=== PATIENT | male | born 1990 | race Caucasian/White ===

== ENCOUNTER 2022-08-06 16:01 | Inpatient (IN) | payer MEDICARE, MEDICAID, SELFPAY ==
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
[2022-08-06 16:36] VITALS: BP 150/100; PULSE 84; RESP 14; TEMP 36.8; O2SAT 98; BMI 32.3
--- NOTE | 2022-08-06 16:46 | XRR_ITS ---
PROCEDURE INFORMATION: Exam: XR Chest Exam date and time: 08/06/2022 5:06 PM Age: 31 years old Clinical indication: Pain; Shortness of breath and other: Cough; Chest pressure; Patient HX: Patients states he has lung cancer; Additional info: SOB TECHNIQUE: Imaging protocol: Radiologic exam of the chest. Views: 1 view. COMPARISON: No relevant prior studies available. FINDINGS: Lungs: Unremarkable. No consolidation. Pleural spaces: Unremarkable. No pleural effusion. No pneumothorax. Heart/Mediastinum: Unremarkable. No cardiomegaly. Bones/joints: No acute abnormality. XR/XR chest 1V portable [id number] IMPRESSION: No acute findings.
--- NOTE | 2022-08-06 16:59 | ECG_ITS ---
[facility] Test Date: 2022-08-06 Pat Name: Luis John Department: Room: Gender: Male Database Administrator: : 1990 Requested By: Remberto Cisneros Order Number: [id number] Villarreal MD: Mac Black M.D. Measurements Intervals [place] Rate: 92 P: 48 IN: 174 QRS: 59 QRSD: 100 T: 29 QT: 332 QTc: 411 Interpretive Statements SINUS RHYTHM WITH OCCASIONAL VENTRICULAR PREMATURE COMPLEXES No previous ECG available for comparison Electronically Signed On 08-07-2022 18:14:42 REPRODUCER by Mac Black M.D. [email or web address]
[2022-08-06 17:43] LABS: Basophils # 0.1 10^3/uL (0.0-0.1); Basophils % 0.4 %; Eosinophils % 0.2 %; Hematocrit 51.8 % (42.0-52.0); Lymphocytes # 2.1 10^3/uL (0.8-4.8); Lymphocytes % 16.9 %; Mean Corpuscular HGB Conc 34.7 g/dL (30.0-36.0); Mean Corpuscular Hemoglobin 30.3 pg (28.0-34.0); Mean Corpuscular Volume 87.1 fl (80-94); Mean Platelet Volume 11.7 fL (7.4-10.4); Monocytes # 0.7 10^3/uL (0.2-0.9); Monocytes % 5.8 %; Neutrophils # 9.27 10^3/uL (1.8-7.7); Neutrophils % 76.4 %; Nucleated Red Blood Cells % 0 %; Platelet Count 330 10^3/cmm (130-400); Red Blood Count 5.95 10^6/uL (4.1-5.3); Red Cell Distribution Width 12.9 % (12.1-15.1); White Blood Count 12.1 10^3/uL (4.0-10.0)
[2022-08-06 18:19] LABS: Alanine Aminotransferase 25 U/L (0-41); Albumin Level 5.1 g/dL (3.5-5.2); Alkaline Phosphatase 70 U/L (40-130); Anion Gap 21.8 (5-19); Aspartate Amino Transferase 18 U/L (0-40); Blood Urea Nitrogen 12 mg/dL (6-20); Calcium 10.5 mg/dL (8.5-10.5); Carbon Dioxide 21 mmol/L (22-29); Chloride 101 mmol/L (98-107); Globulin 3.9 g/dL (1.3-4.6); Glomerular Filtration Rate 98.4 mL/min (90-130); Glucose 103 mg/dL (65-115); Osmolality Calculated 290 mOsm/kg (285-295); Potassium 3.8 mmol/L (3.5-5.1); Sodium 140 mmol/L (136-145); Thyroid Stimulating Hormone 1.27 uIU/mL (0.27-4.20); Total Bilirubin 0.9 mg/dL (0.15-1.2)
[2022-08-06 18:20] LABS: Acetaminophen < 5.0 ug/mL (10-30); Alcohol Level < 10 mg/dL (0-10); Salicylate < 0.3 mg/dL (3-10)
[2022-08-06 19:00] LABS: Amphetamines Screen Urine Negative (Negative); Barbiturates Screen Urine Negative (Negative); Benzodiazepines Screen Urine Negative (Negative); Cocaine Screen Urine Negative (Negative); Opiate Screen Urine Negative (Negative); PCP Screen Urine Negative (Negative); THC Screen Urine Positive (Negative)
[2022-08-06 19:08] LABS: SARS Covid-2 Antigen Negative (Negative)
[2022-08-06 19:10] LABS: Protein Urine 1+ (Negative); Specific Gravity, Urine 1.015 (1.005-1.030); Urine Appearance Hazy (CLEAR); Urine Color Yellow (Yellow); pH Urine 7 (5-7)
[2022-08-06 19:11] LABS: Add Urine Microscopic? YES; Bilirubin Urine 2+ (Negative); Blood Urine Neg (Negative); Glucose Urine UA Norm (Normal); Ketones Urine 2+ (Negative); Leukocyte Esterase Urine 1+ (Negative); Nitrate Urine Negative (Negative); Urobilinogen Urine 1 mg/dL (Negative)
[2022-08-06 19:14] LABS: Add Urine Culture? Yes; Bacteria Urine 1+ /hpf; Mucus Urine 3+ /hpf; Squamous Epithelial Cell Urine 0-4 /hpf (0-5); WBC Urine 25-40 /hpf (0-5)
[2022-08-06] MEDS: nicotine 14 mg Patch 1 PATCH TRANSDERMA (19:15)
[2022-08-06 19:34] VITALS: BP 132/97; TEMP 36.7
[2022-08-06] MEDS: ciprofloxacin 500 mg Tablet PO (20:15)
[2022-08-06 22:00] VITALS: BP 140/104; PULSE 91; RESP 18; TEMP 36.6; O2SAT 98
[2022-08-06] MEDS: acetaminophen 325 mg Tablet 650 MG PO (22:12)
--- NOTE | 2022-08-06 22:15 | PC.NURSE ---
pt came to nurses station and asked for something to help with acid. tylenol was given as ordered.
[2022-08-06] MEDS: diphenhydrAMINE 50 mg Capsule PO (23:01)
[2022-08-06] MEDS: haloperidol 5 mg Tablet PO (23:01)
--- NOTE | 2022-08-06 23:09 | PC.NURSE ---
pt presented to unit paranoid, pacing unit, believes people are out to get him, constantly watching exit doors, has been redirected multiple times by staff to walk toward dayroom if needing to walk as other patients are sleeping. pt reports there's someone in the hospital after me assured patient he is safe. Discussed this was a locked unit. He has continued to pace, becoming more anxious, he has a look of fear in his eyes. Provider notified, ordered for Benadryl 50mg PO, Ativan 2mg PO, Haldol 5mg PO. pt refused only Ativan as he stated I had an addiction in the past and don't want this one, can I refuse it? the RN stated yes, it's your right to refuse. Pt med compliant with Benadryl and Haldol. Will continue to monitor.
--- NOTE | 2022-08-07 00:59 | PC.ADMIT ---
[address] Admission Note: The patient,Luis John,31 y/o, was given written information regarding hospital policies, unit procedures and contact persons. Patient's smoking status: . Vital Signs - 8 hr 08/06/22 19:34 08/06/22 22:00 08/06/22 21:22 Temperature 98.0 F 97.8 F Pulse Rate 91 Respiratory Rate 18 Blood Pressure 132/97 140/104 Pulse Oximetry 98 Oxygen Delivery Method Room Air Room Air Room Air
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
[2022-08-07 06:00] VITALS: RESP 18
--- NOTE | 2022-08-07 06:03 | PC.NURSE ---
pt has been sleeping most of the night, on occasions during safety rounds it was observed patient to be restless, he continued to sleep without any issues.
--- NOTE | 2022-08-07 06:12 | PC.NURSE ---
pt has been awake since about 0330, she has been calm and cooperative, and showered. Staff has encouraged pt to try to get additional rest.
--- NOTE | 2022-08-07 06:36 | PC.NURSE ---
During admission assessment pt reported I take Depakote 500mg twice a day and a little blue pill for my PTSD. My aunt Vivienne can go to my apartment and look at alll my pills pt encouraged to discuss medications with provider.
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
[2022-08-07] MEDS: ciprofloxacin 500 mg Tablet PO ×2 (13:06→20:47)
[2022-08-07 14:00] VITALS: BP 127/84; PULSE 99; RESP 16; TEMP 36.8; O2SAT 98
[2022-08-07] MEDS: nicotine 21 mg Patch 1 PATCH TRANSDERMA (14:34)
[2022-08-07 21:49] VITALS: BP 114/70; PULSE 77; RESP 16; O2SAT 97
--- NOTE | 2022-08-08 04:56 | PC.NURSE ---
pt woke up once for a drink but otherwise, slept all night, no issues reported or noted
[2022-08-08 06:00] VITALS: RESP 18
[2022-08-08 06:46] VITALS: BP 111/71; PULSE 68; RESP 16; TEMP 36.6; O2SAT 97
[2022-08-08] MEDS: ciprofloxacin 500 mg Tablet PO ×2 (08:19→20:58)
--- NOTE | 2022-08-08 08:45 | PC.NURSE ---
shift assessment denies SI/HI/AVH currently, replies with kwasi answer no to questions asked of him, med compliant at this time.
[2022-08-08 14:00] VITALS: BP 123/83; PULSE 86; RESP 16; TEMP 36.6; O2SAT 97
[2022-08-08] MEDS: nicotine 21 mg Patch 1 PATCH TRANSDERMA (15:39)
--- NOTE | 2022-08-08 16:13 | W.PM.NPUPNS ---
Subjective NPU Subjective: Patient presents today reporting that things have been rough recently. He was in a psychiatric hospital in [place] and discharged with a 30-day supply of medications which he suggest may have run out 6 to 7 days ago. He reports that his aunt brought him down to the area as she moved out here as his grandmother is in failing health in this area. Reportedly she has a list of his medications as he can only remember that he was on Depakote and could not remember the dose. We discussed the risks, benefits and alternatives of restarting the Depakote at 500 mg p.o. nightly and he understood and agreed to proceed as is documented in this note. We agreed that once we got a list of his other medications that we would get those restarted. He expressed extreme anxiety and anxiousness about being in the hospital, about not having his medication etc. Mental Status Exam MSE Comments: This is a short obese white male in hospital scrubs with limited grooming and eye contact.? No abnormal movements except for psychomotor agitation.? More cooperative with exam in moderate to extreme distress.? Speech was slightly increased rate and normal volume.? Mood described as anxious, affect affect congruent with less irritable.? Thought process linear.? Thought content: Patient did not answer questions surrounding lethality but did not display aggression toward self or others, there were no delusions reported or but clear paranoia noted, he he did not report any auditory or visual hallucinations.? Attention, concentration and memory appear limited but were not formally tested.? He is alert and oriented to person or place.? Insight, judgment and impulse control impaired. Vitals/I&O/Wt Last Vital Signs Temp 98 F 08/08/22 14:00 Pulse 86 08/08/22 14:00 Resp 16 08/08/22 14:00 BP 123/83 08/08/22 14:00 Pulse Ox 97 08/08/22 14:00 O2 Del Method 08/08/22 14:00 Weight last 48 hrs Weight 90.718 kg Data NPU 08/06/22 17:27 08/06/22 17:27 Micro: Microbiology 08/06/22 18:25 Urine Culture - Final Urine,Clean Catch Microbiology 08/06/22 18:25 Urine,Clean Catch Urine Culture - Final A&P Assessment and plan (1) Acute UTI: (2) Acute psychosis: (3) Suicidal ideation: Plan This is a 31-year-old white male with a long history of mental health issues and many unknowns secondary to him not having any history of our systems, but he is a more willing historian today. 1.? Continue current medication. Start Depakote DR 500 mg p.o. nightly. And find additional information on other medications 2.? Continue every 15 minute checks for safety. 3.? Encourage individual, group and milieu therapies. 4.? Encourage sober living treatment after discharge at the highest level of care to which he is willing to commit.. Involuntary Hold Information 96 Hour Hold: 96 Hour Involuntary Admission: No Attestations NPU Medical Necessity Statement*: Inpatient hospitalization is medically necessary and the clinically appropriate intervention at this time. We will monitor medication to make changes as indicated.? Likely length of stay 3 to 5 days. Coding Level of Care Code Acute Code for Chg Fwd Diagnoses Acute UTI N39.0 Acute psychosis F23 Suicidal ideation R45.851
[2022-08-08] MEDS: hyDROXYzine 25 mg Capsule 50 MG PO (18:16)
--- NOTE | 2022-08-08 18:16 | PC.NURSE ---
PRN VISTARIL 50 MG GIVEN PO PER PT C/O STATED ANXIETY
[2022-08-08] MEDS: divalproex DR 500 mg Tablet PO (20:58)
[2022-08-08 22:00] VITALS: BP 136/83; PULSE 105; RESP 17; TEMP 37; O2SAT 98
[2022-08-09 06:00] VITALS: RESP 16
[2022-08-09] MEDS: ciprofloxacin 500 mg Tablet PO ×2 (08:37→23:12)
--- NOTE | 2022-08-09 13:25 | W.PM.NPUPNS ---
Subjective NPU Subjective: Patient presented today reporting that he is still feeling crappy from not having his medications. His family brought in his medication list. And after reviewing it he and I discussed the risks, benefits and alternatives of restarting his medications. Somewhat slightly lower doses initially but he understood and agreed to proceed as is documented in this note. We will be restarting his Zyprexa, Cogentin, propranolol and switching his Depakote to ER at a slightly lower dose initially. Mental Status Exam MSE Comments: This is a short obese white male in hospital scrubs with limited grooming and eye contact.? No abnormal movements except for psychomotor agitation.? More cooperative with exam in moderate to extreme distress.? Speech was slightly increased rate and normal volume.? Mood described as anxious, affect affect congruent with less irritable.? Thought process linear.? Thought content: Patient did not answer questions surrounding lethality but did not display aggression toward self or others, there were no delusions reported or but clear paranoia noted, he he did not report any auditory or visual hallucinations.? Attention, concentration and memory appear limited but were not formally tested.? He is alert and oriented to person or place.? Insight, judgment and impulse control impaired. Vitals/I&O/Wt Last Vital Signs Temp 98.6 F 08/08/22 22:00 Pulse 105 H 08/08/22 22:00 Resp 16 08/09/22 06:00 BP 136/83 08/08/22 22:00 Pulse Ox 98 08/08/22 22:00 O2 Del Method 08/08/22 22:00 Data NPU 08/06/22 17:27 08/06/22 17:27 Micro: Microbiology 08/06/22 18:25 Urine Culture - Final Urine,Clean Catch Microbiology 08/06/22 18:25 Urine,Clean Catch Urine Culture - Final A&P Assessment and plan (1) Acute UTI: (2) Acute psychosis: (3) Suicidal ideation: Plan This is a 31-year-old white male with a long history of mental health issues and many unknowns secondary to him not having any history of our systems, but he is a more willing historian today. 1.? Continue current medication. Started Depakote DR 500 mg p.o. nightly. Depakote to ER 1000 mg p.o. nightly, Zyprexa 15 mg p.o. nightly, propranolol 20 mg p.o. twice daily, and Cogentin 1 mg p.o. twice daily. He had been on Depakote ER 1500, and Zyprexa 30 mg p.o. q. nightly. 2.? Continue every 15 minute checks for safety. 3.? Encourage individual, group and milieu therapies. 4.? Encourage sober living treatment after discharge at the highest level of care to which he is willing to commit.. Involuntary Hold Information 96 Hour Hold: 96 Hour Involuntary Admission: No Attestations NPU Medical Necessity Statement*: Inpatient hospitalization is medically necessary and the clinically appropriate intervention at this time. We will monitor medication to make changes as indicated.? Likely length of stay 3 to 5 days. Coding Level of Care Code Acute Code for Chg Fwd Diagnoses Acute UTI N39.0 Acute psychosis F23 Suicidal ideation R45.851
[2022-08-09 14:00] VITALS: BP 98/68; PULSE 76; RESP 16; TEMP 36.8; O2SAT 96
[2022-08-09] MEDS: propranolol 20 mg Tablet PO (17:38)
[2022-08-09] MEDS: benztropine 1 mg Tablet PO (17:38)
[2022-08-09 22:00] VITALS: BP 115/63; PULSE 57; RESP 15; TEMP 36.4; O2SAT 98
[2022-08-09] MEDS: divalproex ER 500 mg Tablet (24H) 1000 MG PO (23:12)
[2022-08-09] MEDS: OLANZapine 10 mg TABLET 15 MG PO (23:12)
[2022-08-10 06:00] VITALS: BP 106/75; PULSE 88; RESP 18; O2SAT 97
[2022-08-10] MEDS: nicotine 21 mg Patch 1 PATCH TRANSDERMA (08:50)
[2022-08-10] MEDS: benztropine 1 mg Tablet PO ×2 (08:51→17:44)
[2022-08-10] MEDS: ciprofloxacin 500 mg Tablet PO ×2 (08:51→21:07)
[2022-08-10] MEDS: propranolol 20 mg Tablet PO ×2 (08:51→17:44)
--- NOTE | 2022-08-10 12:58 | P.NPUPN_ITS ---
Subjective NPU Subjective: Patient presented today reporting that he is feeling better. He was lying in bed but no reports of irritability or anxiety now that the medications have been restarted. We discussed the risk benefits and alternatives of considering increasing the medications tomorrow to previous dose levels and he understood and agreed to proceed as is documented in this note. He denied any new or pressing issues and continued to be optimistic about the possibility of discharge at the beginning of the week. Mental Status Exam MSE Comments: This is a short obese white male in hospital scrubs with limited grooming and eye contact.? No abnormal movements except for psychomotor agitation.? More cooperative with exam in moderate to extreme distress.? Speech was slightly increased rate and normal volume.? Mood described as a little better, affect congruent.? Thought process linear.? Thought content: Patient did not answer questions surrounding lethality but did not display aggression toward self or others, there were no delusions reported or but clear paranoia noted, he he did not report any auditory or visual hallucinations.? Attention, concentration and memory appear limited but were not formally tested.? He is alert and oriented to person or place.? Insight, judgment and impulse control impaired. Vitals/I&O/Wt Last Vital Signs Temp 97.6 F 08/09/22 22:00 Pulse 88 08/10/22 06:00 Resp 18 08/10/22 06:00 BP 106/75 08/10/22 06:00 Pulse Ox 97 08/10/22 06:00 O2 Del Method 08/10/22 06:00 Data NPU 08/06/22 17:27 08/06/22 17:27 A&P Assessment and plan (1) Acute UTI: (2) Acute psychosis: (3) Suicidal ideation: Plan This is a 31-year-old white male with a long history of mental health issues and many unknowns secondary to him not having any history of our systems, but he is a more willing historian today. 1.? Continue current medication. Started Depakote DR 500 mg p.o. nightly. Depakote to ER 1000 mg p.o. nightly, Zyprexa 15 mg p.o. nightly, propranolol 20 mg p.o. twice daily, and Cogentin 1 mg p.o. twice daily. He had been on Depakote ER 1500, and Zyprexa 30 mg p.o. q. nightly. We discussed the possibili ty of increasing the Depakote and Zyprexa tomorrow. 2.? Continue every 15 minute checks for safety. 3.? Encourage individual, group and milieu therapies. 4.? Encourage sober living treatment after discharge at the highest level of care to which he is willing to commit.. Involuntary Hold Information 96 Hour Hold: 96 Hour Involuntary Admission: No Attestations NPU Medical Necessity Statement*: Inpatient hospitalization is medically necessary and the clinically appropriate intervention at this time. We will monitor medication to make changes as indicated.? Likely length of stay 2-4 days. Coding Level of Care Code Acute Code for Chg Fwd Diagnoses Acute UTI N39.0 Acute psychosis F23 Suicidal ideation R45.851
[2022-08-10 14:00] VITALS: BP 112/67; PULSE 58; RESP 16; TEMP 36.6; O2SAT 98
[2022-08-10] MEDS: divalproex ER 500 mg Tablet (24H) 1000 MG PO (21:07)
[2022-08-10] MEDS: OLANZapine 10 mg TABLET 15 MG PO (21:07)
[2022-08-10 22:00] VITALS: BP 125/78; PULSE 59; RESP 16; TEMP 36.3; O2SAT 97
[2022-08-11 06:00] VITALS: RESP 16
[2022-08-11] MEDS: propranolol 20 mg Tablet PO ×2 (09:14→17:28)
[2022-08-11] MEDS: benztropine 1 mg Tablet PO ×2 (09:14→17:28)
[2022-08-11] MEDS: ciprofloxacin 500 mg Tablet PO ×2 (09:17→19:55)
--- NOTE | 2022-08-11 09:20 | PC.NURSE ---
Attempted to check pt's vital signs before giving pt his medications. He refused, but said he wanted to take his pills. Medications given.
[2022-08-11] MEDS: nicotine 21 mg Patch 1 PATCH TRANSDERMA (10:26)
--- NOTE | 2022-08-11 10:26 | PC.NURSE ---
Pt came to nurses station for nicotine patch. Asked pt if could check his pulse. Pt again declined to allow staff to do this. Staff reminded pt he received medication that could slow his heart rate. Pt verbalized his understanding and said he'd let staff know if he had any problems. Discussed possible lightheadedness, dizziness, etc. Pt irritably said he knew. Pt declined to allow staff to apply the nicotine patch to his arm; he did it himself.
--- NOTE | 2022-08-11 11:02 | W.PM.NPUPNS ---
Subjective NPU Subjective: Patient presented today reporting that things were going fine. He has been in bed a little bit but reports that is because he is not feeling great. We discussed returning the Depakote to his previous dose but only increasing the Zyprexa to 20 mg p.o. nightly including the risks, benefits and alternatives and he understood and agreed to proceed as is documented in this note. We discussed continuing on the plan that we discussed for discharge at the beginning of the week if he has regained his stability. Mental Status Exam MSE Comments: This is a short obese white male in hospital scrubs with limited grooming and eye contact.? No abnormal movements except for psychomotor agitation.? More cooperative with exam in moderate to extreme distress.? Speech was slightly increased rate and normal volume.? Mood described as a little better, affect congruent.? Thought process linear.? Thought content: Patient did not answer questions surrounding lethality but did not display aggression toward self or others, there were no delusions reported or but clear paranoia noted, he he did not report any auditory or visual hallucinations.? Attention, concentration and memory appear limited but were not formally tested.? He is alert and oriented to person or place.? Insight, judgment and impulse control impaired. Vitals/I&O/Wt Last Vital Signs Temp 97.4 F L 08/10/22 22:00 Pulse 59 L 08/10/22 22:00 Resp 16 08/11/22 06:00 BP 125/78 08/10/22 22:00 Pulse Ox 97 08/10/22 22:00 O2 Del Method 08/10/22 22:00 Data NPU 08/06/22 17:27 08/06/22 17:27 A&P Assessment and plan (1) Acute UTI: (2) Acute psychosis: (3) Suicidal ideation: Plan This is a 31-year-old white male with a long history of mental health issues and many unknowns secondary to him not having any history of our systems, but he is a more willing historian today. 1.? Continue current medication. Started Depakote DR 500 mg p.o. nightly. Depakote to ER 1000 mg p.o. nightly, Zyprexa 15 mg p.o. nightly, propranolol 20 mg p.o. twice daily, and Cogentin 1 mg p.o. twice daily. He had been on Depakote ER 1500, and Zyprexa 30 mg p.o. q. nightly. Increase Depakote back to 1500 mg p.o. nightly of the ER and 20 mg p.o. nightly of Zyprexa. 2.? Continue every 15 minute checks for safety. 3.? Encourage individual, group and milieu therapies. 4.? Encourage sober living treatment after discharge at the highest level of care to which he is willing to commit.. Involuntary Hold Information 96 Hour Hold: 96 Hour Involuntary Admission: No Attestations NPU Medical Necessity Statement*: Inpatient hospitalization is medically necessary and the clinically appropriate intervention at this time. We will monitor medication to make changes as indicated.? Likely length of stay 2-3 days. Coding Level of Care Code Acute Code for Chg Fwd Diagnoses Acute UTI N39.0 Acute psychosis F23 Suicidal ideation R45.851
[2022-08-11 14:00] VITALS: BP 113/71; PULSE 62; RESP 16; TEMP 36.6; O2SAT 91
--- NOTE | 2022-08-11 14:45 | PC.NURSE ---
Discussed pt's refusal to allow his pulse to be taken before Inderal being given with . Pt did allow his vitals to be taken at 1430 today. Pulse at that time was 62. Previously had been in the upper 50s. said to hold Inderal if pulse 50 or less.
[2022-08-11] MEDS: OLANZapine 10 mg TABLET 20 MG PO (19:55)
[2022-08-11] MEDS: divalproex ER 500 mg Tablet (24H) 1500 MG PO (19:55)
[2022-08-11 20:37] VITALS: BP 98/25; PULSE 78; RESP 18; TEMP 36.5; O2SAT 96; BMI 31.6
[2022-08-12 06:00] VITALS: BP 106/67; PULSE 59; RESP 16; O2SAT 95
--- NOTE | 2022-08-12 06:30 | P.NPUPN_ITS ---
Subjective NPU Subjective: Patient reporting that he is doing better with medications being titrated. We discussed the fact that Dr. Hernandez will return tomorrow and continue to evaluate the need for any additional changes. We discussed the continued likelihood for discharge early this week. He denied any side effects or new or pressing issues. Mental Status Exam MSE Comments: This is a short obese white male in hospital scrubs with limited grooming and eye contact.? No abnormal movements except for psychomotor agitati on.? More cooperative with exam in moderate to extreme distress.? Speech was slightly increased rate and normal volume.? Mood described as a little better, affect congruent.? Thought process linear.? Thought content: Patient did not answer questions surrounding lethality but did not display aggression toward self or others, there were no delusions reported or but clear paranoia noted, he he did not report any auditory or visual hallucinations.? Attention, concentration and memory appear limited but were not formally tested.? He is alert and oriented to person or place.? Insight, judgment and impulse control impaired. Vitals/I&O/Wt Last Vital Signs Temp 97.7 F 08/11/22 20:37 Pulse 78 08/11/22 20:37 Resp 18 08/11/22 20:37 BP 98/25 08/11/22 20:37 Pulse Ox 96 08/11/22 20:37 O2 Del Method 08/11/22 20:37 Weight last 48 hrs Weight 89.018 kg Data NPU 08/06/22 17:27 08/06/22 17:27 A&P Assessment and plan (1) Acute UTI: (2) Acute psychosis: (3) Suicidal ideation: Plan This is a 31-year-old white male with a long history of mental health issues and many unknowns secondary to him not having any history of our systems, but he is a more willing historian today. 1.? Continue current medication. Started Depakote DR 500 mg p.o. nightly. Depakote to ER 1000 mg p.o. nightly, Zyprexa 15 mg p.o. nightly, propranolol 20 mg p.o. twice daily, and Cogentin 1 mg p.o. twice daily. He had been on Depakote ER 1500, and Zyprexa 30 mg p.o. q. nightly. Increase Depakote back to 1500 mg p.o. nightly of the ER and 20 mg p.o. nightly of Zyprexa. 2.? Continue every 15 minute checks for safety. 3.? Encourage individual, group and milieu therapies. 4.? Encourage sober living treatment after discharge at the highest level of care to which he is willing to commit.. Involuntary Hold Information 96 Hour Hold: 96 Hour Involuntary Admission: No Attestations NPU Medical Necessity Statement*: Inpatient hospitalization is medically necessary and the clinically appropriate intervention at this time. We will monitor medication to make changes as indicated.? Likely length of stay 1-3 days. Coding Level of Care Code Acute Code for Chg Fwd Diagnoses Acute UTI N39.0 Acute psychosis F23 Suicidal ideation R45.851
[2022-08-12] MEDS: ciprofloxacin 500 mg Tablet PO ×2 (09:20→20:07)
[2022-08-12] MEDS: benztropine 1 mg Tablet PO ×2 (09:20→17:56)
[2022-08-12 14:00] VITALS: BP 129/71; PULSE 57; RESP 16; TEMP 36.6; O2SAT 97
[2022-08-12] MEDS: propranolol 20 mg Tablet PO (17:56)
[2022-08-12] MEDS: divalproex ER 500 mg Tablet (24H) 1500 MG PO (20:08)
[2022-08-12] MEDS: OLANZapine 10 mg TABLET 20 MG PO (20:08)
[2022-08-12 20:35] VITALS: BP 118/81; PULSE 63; RESP 16; O2SAT 96
[2022-08-12] MEDS: alum-mag-hydroxide-sime 30 mL UDC PO (23:23)
--- NOTE | 2022-08-13 05:00 | PC.NURSE ---
pt would like to discuss with provider why he is taking all his depakote at night. states he takes doensn't take all his Depakote at night, he also takes a dose in the morning as well, asked if the antibtiotic was working, stated yep Encouraged to discuss needs with provider in the morning. Pt also been awake a couple times to snack on food.
[2022-08-13 06:00] VITALS: RESP 18
[2022-08-13] MEDS: benztropine 1 mg Tablet PO ×2 (08:53→17:27)
[2022-08-13] MEDS: propranolol 20 mg Tablet PO ×2 (08:53→17:27)
[2022-08-13] MEDS: ciprofloxacin 500 mg Tablet PO ×2 (08:53→21:46)
--- NOTE | 2022-08-13 13:11 | W.PM.NPUPNS ---
Subjective NPU Subjective: Luis is a 31-year-old white male with a history of acute psychosis admitted with active paranoia. Patient had been compliant with his medications and reported no side effects. He had continued to isolate himself on the milieu. He had reported that he did not wish to discuss the thoughts he was having regarding drug trafficking and the drug cartel. He stated that he continued to have thoughts about it but did not wish to discuss this with strangers. He did continue to report that his mind was preoccupied with these thoughts. Mental Status Exam MSE Comments: This is a short obese white male in hospital scrubs with limited grooming and poor eye contact and disheveled appearance. No abnormal movements except for psychomotor agitation.? He was minimally cooperative on interview. Speech was monotone in quality and decreased in rate and volume..? Mood described as okay. His affect was mood incongruent and restricted in range. ? Thought process was linear.? Thought content: He was guarded and continued to appear paranoid. He he did not report any auditory or visual hallucinations.? Attention, concentration and memory appear limited but were not formally tested.? He is alert and oriented to person or place.? Insight, judgment and impulse control were impaired. Vitals/I&O/Wt Last Vital Signs Temp 98 F 08/12/22 14:00 Pulse 63 08/12/22 20:35 Resp 18 08/13/22 06:00 BP 118/81 08/12/22 20:35 Pulse Ox 96 08/12/22 20:35 O2 Del Method 08/12/22 14:00 Weight last 48 hrs Weight 89.018 kg Data NPU 08/06/22 17:27 08/06/22 17:27 A&P Assessment and plan (1) Acute UTI: (2) Acute psychosis: (3) Suicidal ideation: Plan This is a 31-year-old white male with a of psychosis continuing to show active paranoia. 1.? Continue Depakote 1500 mg daily and olanzapine at 20 mg at night. We will check a Depakote level, liver function test, and CBC with differential tomorrow. 2.? Continue every 15 minute checks for safety. 3.? Encourage individual, group and milieu therapies. 4.? Encourage sober living treatment after discharge at the highest level of care to which he is willing to commit.. Involuntary Hold Information 96 Hour Hold: 96 Hour Involuntary Admission: No Attestations NPU Medical Necessity Statement*: Inpatient hospitalization is medically necessary and the clinically appropriate intervention at this time. We will monitor medication to make changes as indicated.? Likely length of stay 1-3 days. Coding Level of Care Code Acute Code for Chg Fwd Diagnoses Acute UTI N39.0 Acute psychosis F23 Suicidal ideation R45.851
[2022-08-13 14:00] VITALS: BP 105/66; PULSE 63; RESP 16; O2SAT 98
[2022-08-13] MEDS: divalproex ER 500 mg Tablet (24H) 1500 MG PO (15:14)
[2022-08-13 20:26] VITALS: RESP 18
[2022-08-13] MEDS: OLANZapine 10 mg TABLET 20 MG PO (21:46)
[2022-08-14] MEDS: alum-mag-hydroxide-sime 30 mL UDC PO ×2 (03:27→22:16)
[2022-08-14 06:00] VITALS: RESP 18
[2022-08-14] MEDS: propranolol 20 mg Tablet PO (07:55)
[2022-08-14] MEDS: divalproex ER 500 mg Tablet (24H) 1500 MG PO (07:55)
[2022-08-14] MEDS: benztropine 1 mg Tablet PO (07:56)
[2022-08-14] MEDS: ciprofloxacin 500 mg Tablet PO ×2 (07:56→20:04)
[2022-08-14 14:00] VITALS: BP 114/73; PULSE 64; RESP 16; TEMP 36.8; O2SAT 98
--- NOTE | 2022-08-14 16:19 | P.NPUPN_ITS ---
Subjective NPU Subjective: Luis is a 31-year-old white male with a history of acute psychosis admitted with active paranoia. He continued to appear paranoid and isolated himself and there is room. He had refused to discuss any particular issues regarding his hospitalization but continued to report that he did not w soheila to discuss any issues regarding drug trafficking and the drug cartel that was trying to harm him. He had minimal response to redirection and stated that he was sleeping too much here. Mental Status Exam MSE Comments: This is a short obese white male in hospital scrubs with limited grooming, malodorous with poor eye contact and disheveled appearance. No abnormal movements except for psychomotor agitation.? He was minimally cooperative on interview. Speech was monotone in quality and decreased in rate and volume. There was evidence of thought blocking. Mood described as okay. His affect was mood incongruent and blunted. ? Thought process was nonlinear and appeared disorganized. Thought content: He was guarded and continued to appear paranoid. He did at times appear to be responding to internal stimuli. Attention, concentration and memory were poor. He is alert and oriented to pers on or place but not date, month or year.? Insight, judgment and impulse control were impaired. Vitals/I&O/Wt Last Vital Signs Temp 98.3 F 08/14/22 14:00 Pulse 64 08/14/22 14:00 Resp 16 08/14/22 14:00 BP 114/73 08/14/22 14:00 Pulse Ox 98 08/14/22 14:00 O2 Del Method 08/14/22 14:00 Data NPU 08/06/22 17:27 08/06/22 17:27 A&P Assessment and plan (1) Acute UTI: (2) Acute psychosis: (3) Suicidal ideation: Plan This is a 31-year-old white male with a of psychosis continuing to show active paranoia. 1.? Continue Depakote 1500 mg daily and olanzapine at 20 mg at night. 2.? Continue every 15 minute checks for safety. 3.? Encourage individual, group and milieu therapies. 4.? Encourage sober living treatment after discharge at the highest level of care to which he is willing to commit. 5. Patient remains actively paranoid. Involuntary Hold Information 96 Hour Hold: 96 Hour Involuntary Admission: No Attestations NPU Medical Necessity Statement*: Inpatient hospitalization is medically necessary and the clinically appropriate intervention at this time. We will monitor medication to make changes as indicated.? Likely length of stay 3-5 days. Coding Level of Care Code Acute Code for Chg Fwd Diagnoses Acute UTI N39.0 Acute psychosis F23 Suicidal ideation R45.851
[2022-08-14] MEDS: OLANZapine 10 mg TABLET 20 MG PO (20:04)
[2022-08-14 21:32] VITALS: BP 137/97; PULSE 71; RESP 18; O2SAT 98
[2022-08-14] MEDS: ondansetron 4 MG Tablet PO (23:48)
--- NOTE | 2022-08-14 23:50 | PC.NURSE ---
prn zofran given as ordered for nausea per pt request.
[2022-08-15 06:00] VITALS: RESP 18
[2022-08-15] MEDS: benztropine 1 mg Tablet PO ×2 (08:43→17:31)
[2022-08-15] MEDS: propranolol 20 mg Tablet PO (08:43)
[2022-08-15] MEDS: divalproex ER 500 mg Tablet (24H) 1500 MG PO (08:43)
[2022-08-15] MEDS: ciprofloxacin 500 mg Tablet PO ×2 (08:43→20:20)
[2022-08-15 14:00] VITALS: BP 113/77; PULSE 74; RESP 18; TEMP 36.9; O2SAT 98
--- NOTE | 2022-08-15 14:35 | W.PM.NPUPNS ---
Subjective NPU Subjective: Luis is a 31-year-old white male with a history of acute psychosis admitted with active paranoia. The patient had been eating and spending most of the day sleeping. He continued to isolate himself and had no engagement with staff or his peers. He had continued to remain somewhat suspicious when asked questions as he stated that he simply needed to get his medication back in his system and stated that his olanzapine was making him tired. He had complained to the nurse yesterday that he felt that his medication may have been different and that others were trying to replace his previous medications with new ones. He had not elaborated regarding his concerns over drug cartel's being after him but stated that he continued to be worried about things . Mental Status Exam MSE Comments: This is a short obese white male in hospital scrubs with limited grooming, malodorous with poor eye contact and disheveled appearance. No abnormal movements except for psychomotor agitation.? He was minimally cooperative on interview. Speech was monotone in quality and decreased in rate and volume. There was evidence of thought blocking. Mood described as okay. His affect was mood incongruent and blunted. ? Thought process was nonlinear and appeared disorganized. Thought content: He was guarded and continued to appear paranoid. He did at times appear to be responding to internal stimuli. Attention, concentration and memory were poor. He is alert and oriented to person or place but not date, month or year.? Insight, judgment and impulse control were all impaired. Vitals/I&O/Wt Last Vital Signs Temp 98.3 F 08/14/22 14:00 Pulse 71 08/14/22 21:32 Resp 18 08/15/22 06:00 BP 137/97 08/14/22 21:32 Pulse Ox 98 08/14/22 21:32 O2 Del Method 08/14/22 14:00 Data NPU 08/06/22 17:27 08/06/22 17:27 A&P Assessment and plan (1) Acute UTI: (2) Acute psychosis: (3) Suicidal ideation: Plan This is a 31-year-old white male with a of psychosis continuing to show active paranoia. 1.? Continue Depakote 1500 mg daily, propranolol 20mg bid, amantadine, and olanzapine at 20 mg at night. 2.? Continue every 15 minute checks for safety. 3.? Encourage individual, group and milieu therapies. 4.? Encourage sober living treatment after discharge at the highest level of care to which he is willing to commit. 5. Patient remains actively paranoid. Involuntary Hold Information 96 Hour Hold: 96 Hour Involuntary Admission: No Attestations NPU Medical Necessity Statement*: Inpatient hospitalization is medically necessary and the clinically appropriate intervention at this time. We will monitor medication to make changes as indicated.? Likely length of stay 5-10 days. Coding Level of Care Code Acute Code for Chg Fwd Diagnoses Acute UTI N39.0 Acute psychosis F23 Suicidal ideation R45.851
[2022-08-15] MEDS: OLANZapine 10 mg TABLET 20 MG PO (20:20)
[2022-08-15 21:57] VITALS: RESP 15
[2022-08-16 06:00] VITALS: BP 103/57; PULSE 68; RESP 18; TEMP 36.6; O2SAT 98
[2022-08-16] MEDS: divalproex ER 500 mg Tablet (24H) 1500 MG PO (08:16)
[2022-08-16] MEDS: ciprofloxacin 500 mg Tablet PO (08:16)
[2022-08-16] MEDS: benztropine 1 mg Tablet PO ×2 (08:16→18:08)
--- NOTE | 2022-08-16 08:21 | PC.NURSE ---
Pt refused to take his Inderal. Said he doesn't want the heart pill. Pt aware this medication can be used for reasons other than the heart. Pt became flippant and rude toward staff, cutting staff off when explanations attempted. Pt encouraged to talk to the MD about this to see if it needed to be discontinued. Pt declined offer of nicotine patch. Pt dropped a pill; appeared to retrieve it from his pocket and take it. Clarified why he might be taking his amantadine as pt asked what it was for. When staff went back to readdress this with the pt, he said he already knew.
--- NOTE | 2022-08-16 12:20 | PC.NURSE ---
Nurse spoke with pt's aunt PAGE with pt's verbal consent to do so. Pt's mother has just past away Apr 21 2022.
--- NOTE | 2022-08-16 13:41 | P.NPUPN_ITS ---
Subjective NPU Subjective: Luis is a 31-year-old white male with a history of acute psychosis admitted with active paranoia. The patient had continued to isolate himself on the milieu only leaving to eat while quickly returning back to bed to rest. He had reported that he had been receiving treatment in [place] several months ago and stated that he had been on olanzapine before entering here. The patient had reported that he had moved to be closer to family in [place]. He refused to elaborate any further and stated that he was tired of discussing things from the past. Per staff the patient had suffered through the recent of his mother in the winter 2021 although the patient did not discuss this today with this senior grant writer. Mental Status Exam MSE Comments: This is a short obese white male in hospital scrubs with limited grooming, malodorous with poor eye contact and disheveled appearance. No abnormal involuntary motor movements except for psychomotor agitation.? He was minimally cooperative on interview. Speech was monotone in quality and decreased in rate and volume. There was evidence of thought blocking. Mood described as All right. His affect was mood incongruent and blunted. ? Thoug ht process was linear initially but later derailed. Thought content: He was guarded and continued to appear paranoid. He did not appear to be responding to internal stimuli today. Attention, concentration and memory were poor. He is alert and oriented to person and place along with month and year. Insight, judgment and impulse control were all impaired. Vitals/I&O/Wt Last Vital Signs Temp 97.9 F 08/16/22 06:00 Pulse 68 08/16/22 06:00 Resp 18 08/16/22 06:00 BP 103/57 08/16/22 06:00 Pulse Ox 98 08/16/22 06:00 O2 Del Method 08/16/22 06:00 Data NPU 08/06/22 17:27 08/06/22 17:27 A&P Assessment and plan (1) Acute UTI: (2) Acute psychosis: (3) Suicidal ideation: Plan This is a 31-year-old white male with a of psychosis continuing to show active paranoia. 1.? Continue Depakote ER 1500 mg daily, decrease propranolol 10mg bid, amantadine 100mg and olanzapine at 20 mg at night. Will attempt to gather collateral information, including previous psychiatric treatment. 2.? Continue every 15 minute checks for safety. 3.? Encourage individual, group and milieu therapies. 4.? Encourage sober living treatment after discharge at the highest level of care to which he is willing to commit. 5. Patient remains actively paranoid. Involuntary Hold Information 96 Hour Hold: 96 Hour Involuntary Admission: No Attestations NPU Medical Necessity Statement*: Inpatient hospitalization is medically necessary and the clinically appropriate intervention at this time. We will monitor medication to make changes as indicated.? Likely length of stay 5-10 days. Coding Level of Care Code Acute Code for Chg Fwd Diagnoses Acute UTI N39.0 Acute psychosis F23 Suicidal ideation R45.851
[2022-08-16 14:00] VITALS: BP 124/75; PULSE 75; RESP 18; TEMP 37; O2SAT 96
[2022-08-16] MEDS: propranolol 20 mg Tablet 10 MG PO (18:08)
[2022-08-16] MEDS: OLANZapine 10 mg TABLET 20 MG PO (20:38)
[2022-08-16 22:00] VITALS: RESP 15
[2022-08-17 06:00] VITALS: RESP 18
[2022-08-17] MEDS: divalproex ER 500 mg Tablet (24H) 1500 MG PO (08:32)
[2022-08-17] MEDS: benztropine 1 mg Tablet PO ×2 (08:32→17:42)
--- NOTE | 2022-08-17 09:17 | PC.NURSE ---
Pt more receptive today compared to yesterday. Got up for breakfast and stopped at nurses station for his meds. Continues to refuse his AM Inderal . Answered his assessment questions readily. No signs of internal distraction. Returned to his room after interacting with staff. Little eye contact made.
--- NOTE | 2022-08-17 14:33 | PC.NURSE ---
PATIENT REFUSED 1400 VITAL SIGNS. IN BED RESTING.
--- NOTE | 2022-08-17 17:46 | PC.NURSE ---
Pt refused to take his Inderal tonight. Said it makes his heart pound and he doesn't like it. Pt aware the dosage was cut in half by the MD. He still declined to take it.
--- NOTE | 2022-08-17 19:57 | P.NPUPN_ITS ---
Subjective NPU Subjective: Luis is a 31-year-old white male with a history of acute psychosis admitted with active paranoia. Patient was oriented upon milieu. He has continued to report wishing to discuss his past and stated some concerns regarding people trying to harm him in his previous location. Patient reported feeling tired. Patient stated that we can go home and stated that the only reason that he came to the hospital was to get started on his medications again. He continued to appear somewhat unwilling to elaborate regarding his problems and he denies any previous or recent stressors that had exacerbated his current condition. Mental Status Exam MSE Comments: This is a short obese white male in hospital scrubs with limited grooming, malodorous with poor eye contact and disheveled appearance. No abn ormal involuntary motor movements except for psychomotor agitation.? He was minimally cooperative on interview. Speech was monotone in quality and decreased in rate and volume with increase latency in speech. T with here was evidence of thought blocking. Mood described as okay. His affect was mood incongruent and blunted. ? Thought process was linear but superficial. Thought content: He was guarded and continued to appear paranoid. He did not appear to be responding to internal stimuli today. Attention, concentration and memory were poor. He is alert and oriented to person and place along with month and year. Insight, judgment and impulse control were all impaired. Vitals/I&O/Wt Last Vital Signs Temp 98.6 F 08/16/22 14:00 Pulse 75 08/16/22 14:00 Resp 18 08/17/22 06:00 BP 124/75 08/16/22 14:00 Pulse Ox 96 08/16/22 14:00 O2 Del Method 08/16/22 06:00 Data NPU 08/06/22 17:27 08/06/22 17:27 A&P Assessment and plan (1) Acute UTI: (2) Acute psychosis: (3) Suicidal ideation: Plan This is a 31-year-old white male with a of psychosis continuing to show active paranoia. 1.? Continue Depakote ER 1500 mg daily, d/c propranolol, continue amantadine 100mg and olanzapine at 20 mg at night. Will attempt to gather collateral information, including previous psychiatric treatment. 2.? Continue every 15 minute checks for safety. 3.? Encourage individual, group and milieu therapies. 4.? Encourage sober living treatment after discharge at the highest level of care to which he is willing to commit. 5. Patient remains actively paranoid. Involuntary Hold Information 96 Hour Hold: 96 Hour Involuntary Admission: No Attestations NPU Medical Necessity Statement*: Inpatient hospitalization is medically necessary and the clinically appropriate intervention at this time. We will monitor medication to make changes as indicated.? Likely length of stay 5-10 days. Coding Level of Care Code Acute Code for Chg Fwd Diagnoses Acute UTI N39.0 Acute psychosis F23 Suicidal ideation R45.851
[2022-08-17] MEDS: OLANZapine 10 mg TABLET 20 MG PO (20:32)
[2022-08-17] MEDS: haloperidol 5 mg Tablet PO (20:32)
[2022-08-17] MEDS: hyDROXYzine 25 mg Capsule 50 MG PO (20:32)
[2022-08-17 22:00] VITALS: BP 117/76; PULSE 74; RESP 18; TEMP 36.7; O2SAT 96
[2022-08-17] MEDS: diphenhydrAMINE 50 mg Capsule PO (23:13)
[2022-08-17] MEDS: ibuprofen 600 mg Tablet PO (23:13)
[2022-08-18 06:00] VITALS: BP 115/70; PULSE 50; RESP 15; TEMP 36.7; O2SAT 94
[2022-08-18] MEDS: benztropine 1 mg Tablet PO ×2 (09:35→17:34)
[2022-08-18] MEDS: divalproex ER 500 mg Tablet (24H) 1500 MG PO (09:35)
[2022-08-18 14:00] VITALS: BP 122/79; PULSE 61; RESP 16; TEMP 36.4; O2SAT 98
--- NOTE | 2022-08-18 18:37 | P.NPUPN_ITS ---
Subjective NPU Subjective: Luis is a 31-year-old white male with a history of acute psychosis admitted with active paranoia. Patient was minimally interactive on the unit as he had continued to isolate himself, only to be with minimal self- care noted. He continued to appear paranoid and remains somewhat irritable and resistant to changes in medications. Patient was continuing to struggle with providing any clear history as he often broke down in the middle of conversation and stated that he was getting annoyed and did not wish to discuss anything further but simply needed to get back on his medication. Mental Status Exam MSE Comments: This is a short obese white male in hospital scrubs with limited grooming, malodorous with poor eye contact and disheveled appearance. No abnormal involuntary motor movements except for psychomotor agitation.? He was minimally cooperative on interview. Speech was monotone in quality and decreased in rate and volume with increase latency in speech. There was continued evidence of thought blocking. Mood described as okay. His affect was mood incongruent and blunted. ? Thought process was linear but superficial. Thought content: He was guarded and continued to appear paranoid. He did not appear to be responding to internal stimuli today. Attention, concentration and memory were poor. Insight, judgment and impulse control were all impaired. Vitals/I&O/Wt Last Vital Signs Temp 97.5 F L 08/18/22 14:00 Pulse 61 08/18/22 14:00 Resp 16 08/18/22 14:00 BP 122/79 08/18/22 14:00 Pulse Ox 98 08/18/22 14:00 O2 Del Method 08/18/22 06:00 Data NPU 08/06/22 17:27 08/06/22 17:27 A&P Assessment and plan (1) Acute UTI: (2) Acute psychosis: (3) Suicidal ideation: Plan This is a 31-year-old white male with a of psychosis continuing to show active paranoia. 1.? Continue Depakote ER 1500 mg daily, d/c propranolol, continue amantadine 100mg and olanzapine at 20 mg at night. Will attempt to gather collateral information, including previous psychiatric treatment. 2.? Continue every 15 minute checks for safety. 3.? Encourage individual, group and milieu therapies. 4.? Encourage sober living treatment after discharge at the highest level of care to which he is willing to commit. 5. Patient remains actively paranoid. Involuntary Hold Information 96 Hour Hold: 96 Hour Involuntary Admission: No Attestations NPU Medical Necessity Statement*: Inpatient hospitalization is medically necessary and the clinically appropriate intervention at this time. We will monitor medication to make changes as indicated.? Likely length of stay 5-10 days. Coding Level of Care Code Acute Code for Chg Fwd Diagnoses Acute UTI N39.0 Acute psychosis F23 Suicidal ideation R45.851
[2022-08-18] MEDS: OLANZapine 10 mg TABLET 20 MG PO (20:38)
[2022-08-18 20:41] VITALS: BP 114/71; PULSE 96; RESP 18; O2SAT 96
[2022-08-19 06:00] VITALS: BP 115/78; PULSE 84; RESP 18; O2SAT 97; BMI 31.6
[2022-08-19] MEDS: divalproex ER 500 mg Tablet (24H) 1500 MG PO (10:19)
[2022-08-19] MEDS: benztropine 1 mg Tablet PO ×2 (10:19→18:06)
[2022-08-19 13:55] VITALS: BP 115/72; PULSE 79; RESP 18; TEMP 36.6; O2SAT 97
--- NOTE | 2022-08-19 14:57 | P.NPUPN_ITS ---
Subjective NPU Subjective: Luis is a 31-year-old white male with a history of acute psychosis admitted with active paranoia. The patient had revealed that his mother had a few months ago and he was with new family here in [place]. He had expressed having been previously in a skilled nursing and stated that he did not trust his previous doctor. He had agreed that he felt that this medication was helpful for his thoughts. He was unable or unwilling to describe his previous problems that had led to him being in the hospital. Patient continued to isolate himself on the milieu although he had left the room a few times today to ask for extra food. He had reported some improved appetite but still reported that he had not brushed or showered in several days. Mental Status Exam MSE Comments: This is a short obese white male in hospital scrubs with limited grooming, malodorous with poor eye contact and disheveled appearance. No abnormal involuntary motor movements except for psychomotor agitation.? He was more cooperative on interview. Speech was monotone in quality and decreased in rate and volume with some increase in speech latency. There was decreased frequency of thought blocking was noted. Mood described as a little better. His affect was mood incongruent and blunted. ? Thought process was linear but superficial. Thought content: He was guarded and continued to appear paranoid. Attention, concentration and memory were poor. Insight, judgment and impulse control were all impaired. There was continued evidence of apathy and amotivation. Vitals/I&O/Wt Last Vital Signs Temp 97.8 F 08/19/22 13:55 Pulse 79 08/19/22 13:55 Resp 18 08/19/22 13:55 BP 115/72 08/19/22 13:55 Pulse Ox 97 08/19/22 13:55 O2 Del Method 08/18/22 06:00 Weight last 48 hrs Weight 87.362 kg Weight 87.362 kg Weight 89.018 kg Data NPU 08/06/22 17:27 08/06/22 17:27 A&P Assessment and plan (1) Acute UTI: (2) Acute psychosis: (3) Suicidal ideation: Plan This is a 31-year-old white male with a of psychosis continuing to show active paranoia. 1.? Continue Depakote ER 1500 mg daily, d/c propranolol, continue amantadine 100mg and olanzapine at 20 mg at night. Will attempt to gather collateral information, including previous psychiatric treatment. Check depakote level in am, cbc with diff and lft. 2.? Continue every 15 minute checks for safety. 3.? Encourage individual, group and milieu therapies. 4.? Encourage sober living treatment after discharge at the highest level of car e to which he is willing to commit. 5. Patient remains actively paranoid. Involuntary Hold Information 96 Hour Hold: 96 Hour Involuntary Admission: No Attestations NPU Medical Necessity Statement*: Inpatient hospitalization is medically necessary and the clinically appropriate intervention at this time. We will monitor medication to make changes as indicated.? Likely length of stay 5-10 days. Coding Level of Care Code Acute Code for Chg Fwd Diagnoses Acute UTI N39.0 Acute psychosis F23 Suicidal ideation R45.851
[2022-08-19 19:42] VITALS: BP 126/84; PULSE 81; RESP 20; TEMP 36.2; O2SAT 98
[2022-08-19] MEDS: OLANZapine 10 mg TABLET 20 MG PO (20:15)
[2022-08-19] MEDS: hyDROXYzine 25 mg Capsule 50 MG PO (22:06)
--- NOTE | 2022-08-19 22:10 | PC.NURSE ---
PRN vistaril given for anxiety / sleep as ordered per pt request.
[2022-08-20 06:00] VITALS: BP 116/73; PULSE 70; RESP 18; TEMP 36.8; O2SAT 98
[2022-08-20 07:44] LABS: Basophils # 0.1 10^3/uL (0.0-0.1); Basophils % 0.9 %; Eosinophils # 0.2 10^3/uL (0.0-0.8); Eosinophils % 2.5 %; Hematocrit 44.7 % (42.0-52.0); Hemoglobin 15.2 g/dL (11.7-16.6); Lymphocytes # 2.6 10^3/uL (0.8-4.8); Lymphocytes % 39.8 %; Mean Corpuscular Hemoglobin 30.8 pg (28.0-34.0); Mean Corpuscular Volume 90.5 fl (80-94); Mean Platelet Volume 11.4 fL (7.4-10.4); Monocytes # 0.6 10^3/uL (0.2-0.9); Monocytes % 8.8 %; Neutrophils # 3.03 10^3/uL (1.8-7.7); Neutrophils % 47.4 %; Nucleated Red Blood Cells % 0 %; Platelet Count 212 10^3/cmm (130-400); Red Blood Count 4.94 10^6/uL (4.1-5.3); Red Cell Distribution Width 12.4 % (12.1-15.1); White Blood Count 6.4 10^3/uL (4.0-10.0)
[2022-08-20 08:09] LABS: Alanine Aminotransferase 26 U/L (0-41); Albumin Level 3.6 g/dL (3.5-5.2); Alkaline Phosphatase 43 U/L (40-130); Aspartate Amino Transferase 20 U/L (0-40); Globulin 2.8 g/dL (1.3-4.6); Total Bilirubin 0.2 mg/dL (0.15-1.2); Total Protein 6.4 g/dL (6.6-8.7); Valproic Acid Level 57.5 ug/mL (50-100)
[2022-08-20] MEDS: benztropine 1 mg Tablet PO ×2 (08:18→17:56)
[2022-08-20] MEDS: divalproex ER 500 mg Tablet (24H) 1500 MG PO (08:18)
--- NOTE | 2022-08-20 13:36 | W.PM.NPUPNS ---
Subjective NPU Subjective: Luis is a 31-year-old white male with a history of acute psychosis admitted with active paranoia. The patient reported that he was feeling better. He had stated that he had been living by himself at nearby apartments. He had reported that he had had support to get groceries and care for himself with the help of his aunt who live nearby. He had complained at times having a lack of motivation and staff notes the patient continued to struggle with getting outside of the bed. He was able to briefly attend groups today. He has continued to struggle with maintaining self-care requiring prompting to shower and brush his teeth. Mental Status Exam MSE Comments: This is a short obese white male in hospital scrubs with limited grooming, malodorous with poor eye contact and disheveled appearance. No abnormal involuntary motor movements except for psychomotor agitation.? He was more cooperative on interview. Speech was monotone in quality and normal rate and volume with less speech latency noted. There was decreased frequency of thought blocking was noted. Mood described as a little better. His affect was mood incongruent and blunted. ? Thought process was linear but superficial. Thought content: He remained guarded but less overtly paranoid on interview. Attention, concentration and memory were poor. Insight, judgment and impulse control were all impaired. There was continued evidence of apathy and amotivation. Vitals/I&O/Wt Last Vital Signs Temp 98.2 F 08/20/22 06:00 Pulse 70 08/20/22 06:00 Resp 18 08/20/22 06:00 BP 116/73 08/20/22 06:00 Pulse Ox 98 08/20/22 06:00 O2 Del Method 08/20/22 06:00 Weight last 48 hrs Weight 87.362 kg Weight 87.362 kg Weight 89.018 kg Data NPU 08/20/22 07:35 08/06/22 17:27 A&P Assessment and plan (1) Acute UTI: (2) Acute psychosis: (3) Suicidal ideation: Plan This is a 31-year-old white male with a of psychosis continuing to show active paranoia. 1.? Continue Depakote ER 1500 mg daily, d/c propranolol, continue amantadine 100mg and olanzapine at 20 mg at night. Will attempt to gather collateral information, including previous psychiatric treatment. Check depakote level in am, cbc with diff and lft. 2.? Continue every 15 minute checks for safety. 3.? Encourage individual, group and milieu therapies. 4.? Encourage sober living treatment after discharge at the highest level of care to which he is willing to commit. 5. Patient remains actively paranoid. Involuntary Hold Information 96 Hour Hold: 96 Hour Involuntary Admission: No Attestations NPU Medical Necessity Statement*: Inpatient hospitalization is medically necessary and the clinically appropriate intervention at this time. We will monitor medication to make changes as indicated with likely length of stay 5-10 days. Coding Level of Care Code Acute Code for Chg Fwd Diagnoses Acute UTI N39.0 Acute psychosis F23 Suicidal ideation R45.851
[2022-08-20 14:00] VITALS: BP 125/73; PULSE 67; RESP 16; O2SAT 94
[2022-08-20] MEDS: OLANZapine 10 mg TABLET 20 MG PO (20:18)
[2022-08-20 20:27] VITALS: BP 124/84; PULSE 88; RESP 16; TEMP 37.2; O2SAT 95
[2022-08-20] MEDS: ondansetron 4 MG Tablet PO (21:42)
--- NOTE | 2022-08-20 21:45 | PC.NURSE ---
PRN zofran was given as ordered per pt request of an upset stomach.
[2022-08-21 06:00] VITALS: BP 98/68; PULSE 69; RESP 17; TEMP 36.5; O2SAT 98
[2022-08-21] MEDS: divalproex ER 500 mg Tablet (24H) 1500 MG PO (08:17)
[2022-08-21] MEDS: benztropine 1 mg Tablet PO ×2 (08:17→18:00)
[2022-08-21] MEDS: nicotine 21 mg Patch 1 PATCH TRANSDERMA (13:20)
[2022-08-21 14:00] VITALS: BP 131/83; PULSE 74; RESP 16; TEMP 36.9; O2SAT 96
--- NOTE | 2022-08-21 14:25 | W.PM.NPUPNS ---
Subjective NPU Subjective: Luis is a 31-year-old white male with a history of acute psychosis admitted with active paranoia. The patient reported that he was feeling better. Patient reported that he had been more motivated and he had attended groups today. He had reported eating well and stated that his thoughts were appearing clear. He had reported that he had been concerned about running out of his olanzapine prior to coming into the hospital and so for several months he had decreased the olanzapine in half. Unfortunately this had led to increased problems with his thoughts with increased paranoia. He had been less concerned regarding topics including drug cartel's and child kidnapping as he stated that he was no longer as bothered by this. He had reported that he was less distracted by his thoughts. Mental Status Exam MSE Comments: This is a short obese white male unkempt, in hospital scrubs with limited grooming, with poor eye contact and disheveled appearance. No abnormal involuntary motor movements except for psychomotor agitation.? He was more cooperative on interview. Speech was monotone in quality and normal rate and volume with less speech latency noted. There was decreased frequency of thought blocking was noted. Mood described as good. His affect was mood incongruent and blunted. ? Thought process was linear but superficial. Thought content: He denied any homicidal or suicidal ideation. Attention, concentration and memory were poor. Insight, judgment and impulse control were all impaired. There was continued evidence of apathy and amotivation. Vitals/I&O/Wt Last Vital Signs Temp 98.5 F 08/21/22 14:00 Pulse 74 08/21/22 14:00 Resp 16 08/21/22 14:00 BP 131/83 08/21/22 14:00 Pulse Ox 96 08/21/22 14:00 O2 Del Method 08/21/22 14:00 Data NPU 08/20/22 07:35 08/06/22 17:27 A&P Assessment and plan (1) Acute UTI: (2) Acute psychosis: (3) Suicidal ideation: Plan This is a 31-year-old white male with a of psychosis continuing to show active paranoia. 1.? Continue Depakote ER 1500 mg daily, d/c propranolol, continue amantadine 100mg and olanzapine at 20 mg at night. Depakote level 57, CBC and LFT wnl. 2.? Continue every 15 minute checks for safety. 3.? Encourage individual, group and milieu therapies. 4.? Encourage sober living treatment after discharge at the highest level of care to which he is willing to commit. 5. Patient remains actively paranoid. Involuntary Hold Information 96 Hour Hold: 96 Hour Involuntary Admission: No Attestations NPU Medical Necessity Statement*: Inpatient hospitalization is medically necessary and the clinically appropriate intervention at this time. We will monitor medication to make changes as indicated with likely length of stay 3-5 days. Coding Level of Care Code Acute Code for Chg Fwd Diagnoses Acute UTI N39.0 Acute psychosis F23 Suicidal ideation R45.851
[2022-08-21] MEDS: hyDROXYzine 25 mg Capsule 50 MG PO ×2 (14:57→22:20)
--- NOTE | 2022-08-21 18:11 | NPU.GN ---
[facility] Group Topic:Recreation General Mood of Group- patient participated playing corn hole with others. When not his turn to play he remained in the group for support
[2022-08-21] MEDS: OLANZapine 10 mg TABLET 20 MG PO (19:39)
[2022-08-21] MEDS: nicotine 2 mg Gum BUCCAL (19:41)
[2022-08-21 21:11] VITALS: BP 152/102; PULSE 108; RESP 18; O2SAT 97
--- NOTE | 2022-08-21 22:30 | PC.NURSE ---
PRN vistaril for sleep / anxiety given as ordered per pt request
[2022-08-22 06:00] VITALS: BP 102/64; PULSE 54; RESP 16; O2SAT 96
--- NOTE | 2022-08-22 08:13 | PC.NURSE ---
PT IS NEEDING DEPAKOTE LEVEL THIS AM SO DEPAKOTE DOSE WAS HELD PER ORDERS. PT STATES HE SLEPT WELL. DENIES SI/HI AND AVH AT THIS. DENIES PAIN.
[2022-08-22] MEDS: benztropine 1 mg Tablet PO ×2 (08:19→20:37)
[2022-08-22 09:07] LABS: Valproic Acid Level 66.7 ug/mL (50-100)
--- NOTE | 2022-08-22 09:22 | PC.NURSE ---
DEPAKOTE LEVEL 66, WNL, DEPAKOTE AM DOSE WILL BE GIVEN ORDERED.
[2022-08-22] MEDS: divalproex ER 500 mg Tablet (24H) 1500 MG PO (09:31)
[2022-08-22] MEDS: nicotine 21 mg Patch 1 PATCH TRANSDERMA (13:10)
[2022-08-22 14:00] VITALS: BP 122/74; PULSE 89; RESP 16; TEMP 36.6; O2SAT 96
[2022-08-22] MEDS: hyDROXYzine 25 mg Capsule 50 MG PO (15:51)
--- NOTE | 2022-08-22 15:52 | PC.NURSE ---
PRN VISTARIL 50 MG GIVEN PO PER PT C/O STATED ANXIETY
--- NOTE | 2022-08-22 16:15 | P.NPUPN_ITS ---
Subjective NPU Subjective: Luis is a 31-year-old white male with a history of acute psychosis admitted with active paranoia. The patient reported that he was feeling better. Patient reported no side effects from his medication. The patient had stated that he wished to restart his medications and stated that he had a place to leave. He had reported good concentration and energy. He had been more engaged and outgoing on the milieu. He reported no depressed mood at this time. He had endorsed the loss of family members over the last year and stated that he was content with living [place] at [place]. He had reported having distant family members who were new to him but were supportive and states that he was not as worried recently about any drug cartel's or child kidnapping as he had reported that he was not thinking about this at this time. Mental Status Exam MSE Comments: This is a short obese white male with improved hygiene in hospital scrubs , with fair eye contact. No abnormal involuntary motor movements were noted today.? He was more cooperative on interview. Speech was monotone in quality and normal rate and volume with less speech latency noted. There was no thought blocking noted today. Mood described as good. His affect was less restricted in range and slightly brighter. ? Thought process was linear but superficial with more content noted. Thought content: He denied any homi cidal or suicidal ideation. Attention, concentration and memory were poor. Insight, judgment appeared to be improving. His impulse control was improving as well. No apathy or amotivation was appreciated today. Vitals/I&O/Wt Last Vital Signs Temp 97.8 F 08/22/22 14:00 Pulse 89 08/22/22 14:00 Resp 16 08/22/22 14:00 BP 122/74 08/22/22 14:00 Pulse Ox 96 08/22/22 14:00 O2 Del Method 08/22/22 14:00 Data NPU 08/20/22 07:35 08/06/22 17:27 A&P Assessment and plan (1) Acute UTI: (2) Acute psychosis: (3) Suicidal ideation: Plan This is a 31-year-old white male with a of psychosis continuing to show active paranoia. 1.? Continue Depakote ER 1500 mg daily, d/c propranolol, continue amantadine 100mg and olanzapine at 20 mg at night. Depakote level 57, CBC and LFT wnl. 2.? Continue every 15 minute checks for safety. 3.? Encourage individual, group and milieu therapies. 4.? Encourage sober living treatment after discharge at the highest level of care to which he is willing to commit. 5. Patient appears better, likely discharge tommorow. Involuntary Hold Information 96 Hour Hold: 96 Hour Involuntary Admission: No Attestations NPU Medical Necessity Statement*: Inpatient hospitalization is medically necessary and the clinically appropriate intervention at this time. We will monitor medication to make changes as indicated with likely length of stay 3-5 days. Coding Level of Care Code Acute Code for Chg Fwd Diagnoses Acute UTI N39.0 Acute psychosis F23 Suicidal ideation R45.851
[2022-08-22] MEDS: OLANZapine 10 mg TABLET 20 MG PO (20:37)
[2022-08-22 21:18] VITALS: BP 121/83; PULSE 88; RESP 17; TEMP 36.6; O2SAT 96
[2022-08-22] MEDS: trazodone 50 mg Tablet PO ×2 (21:20→22:28)
--- NOTE | 2022-08-23 05:01 | PC.NURSE ---
at shift change pt reported twitching at times in his left upper arm, cogentin 1mg given as scheduled, education provided, pt verbalized understanding, pt also stated he was anxious about discharge, notified him he receives Zyprexa 20mg at bedtime, he also requested sleep medication. Trazodone given twice per MD orders. Pt wakes up occasionally for a snack and returns to bed.
[2022-08-23 06:00] VITALS: RESP 16
[2022-08-23] MEDS: benztropine 1 mg Tablet PO (08:19)
[2022-08-23] MEDS: divalproex ER 500 mg Tablet (24H) 1500 MG PO (08:19)
[2022-08-23] MEDS: nicotine 21 mg Patch 1 PATCH TRANSDERMA (08:25)
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
[2022-08-23 09:28] VITALS: RESP 16
--- NOTE | 2022-08-23 11:22 | DCPLANNER ---
IMM completed 08/23/22 @ 8516. Pt was given a copy of rights and he stated he understood his rights.
== END 2022-08-23 12:30 | disposition home or self-care (01) | DRG 885 ==
LOC: ER 20:24 → NP 21:06
PROVIDERS: Admitting Provider Psychiatry & Neurology Psychiatry; Emergency Provider Emergency Medicine; Visit Provider Psychiatry & Neurology Psychiatry
DX: F23 Brief psychotic disorder (principal); R45.851 Suicidal ideations; N39.0 Urinary tract infection, site not specified; F22 Delusional disorders; F43.10 Post-traumatic stress disorder, unspecified; F12.90 Cannabis use, unspecified, uncomplicated; Z91.14 Patient's other noncompliance with medication regimen
CPT/HCPCS: 36415; 71045; 80053; 80076; 80164; 80306; 80307; 81001; 84443; 85025; 87086; 87426; 93005; 97150; 97165; 99238; 99285; Q0162; Q0163

== ENCOUNTER 2023-08-02 11:41 | Emergency (ER) | payer MEDICARE, MEDICAID, SELFPAY ==
[2023-08-02 11:45] VITALS: BP 128/81; PULSE 69; RESP 22; TEMP 36.4; O2SAT 98; BMI 25.3
--- NOTE | 2023-08-02 12:40 | XR_ITS ---
WS: [id number] Exam: XR chest 1V portable [id number] Date/Time of Exam: 08/02/2023 12:49 PM Reason For Exam: sob Comparison 08/06/2022. Findings: The lungs are clear and fully expanded. Costophrenic angles are sharp. No infiltrates. Bronchovascula r relief appears normal. Cardiac silhouette is unremarkable. Bony elements are intact. IMPRESSION: Unremarkable chest radiograph.
--- NOTE | 2023-08-02 12:40 | ECG_ITS ---
[facility] Test Date: 2023-08-02 Pat Name: Luis John Department: Room: Gender: Male Vehicle Refinisher: : 1990 Requested By: Korin Tesfaye Order Number: [id number] Vlilarreal MD: Maximino Curran M.D. Measurements Intervals [place] Rate: 78 P: 68 MN: 176 QRS: 78 QRSD: 100 T: 51 QT: 360 QTc: 412 Interpretive Statements SINUS RHYTHM WITH MARKED SINUS ARRHYTHMIA Compared to ECG 08/06/2022 16:59:27 Ventricular premature complex(es) no longer present Electronically Signed On 08-02-2023 18:03:26 PARACHUTE PACKER by Maximino Curran M.D. [id number]
--- NOTE | 2023-08-02 13:43 | ED_ITS ---
HPI - SOB/Dyspnea General: Chief Complaint: Shortness of Breath/Dyspnea Stated Complaint: Chest pains, SOB Time Seen by Provider: 08/02/23 12:29 Source: patient Mode of arrival: ambulatory Limitations: no limitations History of Present Illness: HPI Narrative: Patient is a 32-year-old male who presents to ED today with a complaint of intermittent shortness of breath over the past several months. Patient states he feels like sometimes his lungs are burning and he will also have a cough. He states other times he feels normal. He states yesterday his symptoms were worse than they ever were. He states his friend gave him a medication for pneumonia that starts with an 'M' . And states after taking this he felt significantly better. Patient is an everyday vapor. He has never ran any fevers. He does not feel like symptoms are related to exertion. Denies chest pain. No cardiac history. No risk factors for PE. Does state he recently found black mold in his apartment. Landlord aware and patient is now staying with a friend. States landlord is testing for mold and hiring a company to eradicate. elicited complaint: shortness of breath Onset (ago): month(s) Timing: intermittent Severity: moderate Exacerbating factors: nothing Relieving factors: nothing Associated symptoms: Reports no associated symptoms and chest congestion; Deny abdominal pain, chest pain, dizziness, fever(s), hemoptysis, lightheadedness, nausea, orthopnea, palpitations, syncope or vomiting Treatment prior to arrival: none Related Data: Home oxygen amount: none Review of Systems Const: Denies: fever(s), chills, body aches, fatigue or malaise ENMT: Denies: throat pain or odynophagia Card: Denies: chest pain, palpitations, irregular heart rhythm, edema, swelling of feet/ankles, lightheadedness, syncope, pre-syncope, dyspnea on exertion, orthopnea, leg pain with exertion or acrocyanosis Resp: Reports: dyspnea, non-productive cough, pain on inspiration and chest congestion; Denies: productive cough, wheezing, stridor, change in phlegm color or hemoptysis GI: Denies: abdominal pain, nausea, vomiting or diarrhea Musc: Denies: back pain Neuro: Denies: headache(s) or dizziness PFS ED PFSH: Medical History Marijuana use, episodic Cigarette nicotine dependence Schizophrenia Psychiatric care Strain of muscle, fascia and tendon of lower back, initial encounter Surgical History No significant past surgical history Family History Father No problems noted. Mother No problems noted. Social History Smoking and tobacco/nicotine status: current every day tobacco/nicotine user Quit status (tobacco/nicotine): considering quitting Second hand smoke exposure: No Alcohol intake: current Alcohol intake frequency: few times a week Alcohol type: beer, wine and hard liquor Substance/Drug Use: current Substance/Drug use frequency: few times a week Adopted: No Caregiver/support person: No Physical Exam Const: COMMON NORMALS: no acute distress, average body habitus, patient oriented x3, no limitations, healthy appearing, alert and well nourished GENERAL APPEARANCE: cooperative ORIENTATION/CONSCIOUSNESS: Yes awake, Yes oriented to person, Yes oriented to place and Yes oriented to time Chest: COMMONS NORMALS: normal inspection of the chest and normal palpation of entire chest wall Resp: COMMON NORMALS: normal respiratory effort and clear to auscultation bilaterally AUSCULTATION: clear to auscultation bilaterally Cardio: COMMON NORMALS: regular rate and regular rhythm RATE: regular rate RHYTHM: regular rhythm Extremity: COMMON NORMALS: no clubbing, cyanosis or edema, no calf tenderness and no pedal edema Neuro: KASEY COMA SCALE: document GCS findings Kasey coma scale eye opening: Spontaneous [place] coma scale verbal response: Orientated [place] coma scale motor response: Obey commands [place] coma scale total score: 15 COMMON NORMALS: patient oriented x3 SENSORIUM/ORIENTATION: Yes alert, Yes oriented to person, Yes oriented to place and Yes oriented to time Skin: COMMON NORMALS: no rashes or lesions noted GENERAL SKIN EXAM: no ra shes or lesions noted Course Vital Signs: Vital signs: Vital Signs Temperature 97.5 F L 08/02/23 11:45 Pulse Rate 69 08/02/23 11:45 Respiratory Rate 22 H 08/02/23 11:45 Blood Pressure 128/81 08/02/23 11:45 Pulse Oximetry 98 08/02/23 11:45 Oxygen Delivery Me thod Room Air 08/02/23 11:45 MDM - SOB/Dyspnea Medical Decision Making Patient arrives in no acute distress with stable vital signs. He does vape multiple times daily. He smokes marijuana several times weekly. He has had reported black mold exposure in his apartment. Certainly any one of these could contribute to his symptoms. Patient will be placed on steroids and given an albuterol inhaler. Discussed vaping and marijuana cessation but obviously this will be a personal change he will need to decide on. I will have CM set him up with a PCP for further evaluation if symptoms do not improve. Medical Records I reviewed the patient's medical records. All radiology interpretation(s) finalized by discharge Discharge Plan Discharge Patient Disposition: Home Clinical Impression: Current every day vaping Dyspnea Qualifiers: Dyspnea type: unspecified Qualified Code(s): R06.00 - Dyspnea, unspecified Condition: Stable Prescriptions: New prednisone 10 mg tablet 10 mg PO DAILY 6 Days Qty: 20 0RF Rx Instructions: Take 5 tabs on day 1-2, 4 tabs on day 3, 3 tabs on day 4, 2 tabs on day 5, and 1 tab on day 6 albuterol sulfate 90 mcg/actuation HFA aerosol inhaler 2 inh INHALATION Q4H PRN (Reason: shortness of breath or wheezing) Qty: 6.7 0RF No Action olanzapine 10 mg tablet 20 mg PO DAILY divalproex 500 mg tablet extended release 24 hr 1,500 mg PO QAM Discharge Orders: Discharge ED (Routine); Ordered 08/02/23 Ordered By: Korin Tesfaye Referrals: Casimiro Barriga MD [Primary Care Provider] - Coding Level of Care Code ED Banana Loader for Elmo Teixeira
[2023-08-02 14:18] VITALS: BP 128/81; PULSE 69; RESP 22; TEMP 36.4; O2SAT 98
== END 2023-08-02 14:19 | disposition home or self-care (01) ==
PROVIDERS: Emergency Provider Physician Assistant; PCP Family Medicine Adult Medicine
DX: R06.00 Dyspnea, unspecified (principal); F17.290 Nicotine dependence, other tobacco product, uncomplicated
CPT/HCPCS: 71045; 93005; 99284

== ENCOUNTER → 2023-09-04 14:30 | Outpatient (BNVA) | payer MEDICAID, SELFPAY | PROVIDERS: PCP Family Medicine Adult Medicine; Visit Provider Nurse Practitioner Psychiatric/Mental Health | DX: Z79.899 Other long term (current) drug therapy (principal) | CPT/HCPCS: 80053; 80061; 80164; 83036 ==

== ENCOUNTER → 2025-04-13 14:37 | Outpatient (BNVA) | payer MEDICARE, MEDICAID, OTHER, SELFPAY | PROVIDERS: PCP Family Medicine Adult Medicine; Visit Provider Nurse Practitioner Psychiatric/Mental Health | DX: Z79.899 Other long term (current) drug therapy (principal) | CPT/HCPCS: 80053; 80061; 80164; 83036 ==

== ENCOUNTER 2025-05-16 15:04 | Emergency (ER) | payer MEDICAID, SELFPAY ==
--- NOTE | 2025-05-16 15:08 | ECG_ITS ---
[employer] Test Date: 2025-05-16 Pat Name: Luis John Department: Room: Gender: Male Community Liaison Officer: : 1990 Requested By: Zohra Lewis Order Number: [id number] Reading MD: Measurements Intervals [place] Rate: 79 P: 40 [place]: 160 QRS: 80 QRSD: 102 T: 41 QT: 362 QTc: 416 Interpretive Statements SINUS RHYTHM No previous ECG available for comparison [id number]
[2025-05-16 15:10] VITALS: BP 159/94; PULSE 82; RESP 16; TEMP 36.8; O2SAT 96; BMI 28.1
--- NOTE | 2025-05-16 15:16 | XRR_ITS ---
PROCEDURE INFORMATION: Exam: XR Chest Exam date and time: 05/16/2025 3:16 PM Age: 34 years old Clinical indication: Cough; Additional info: Prod cough, SOB, palpitations TECHNIQUE: Imaging protocol: Radiologic exam of the chest. Views: 1 view. COMPARISON: CR XR chest 1V portable [id number] 08/02/2023 12:56 PM FINDINGS: Lungs: Unremarkable. No consolidation. Pleural spaces: Unremarkable. No pleural effusion. No pneumothorax. Heart/Mediastinum: Unremarkable. No cardiomegaly. Bones/joints: Unremarkable. XR/XR chest 1V portable [id number] IMPRESSION: No acute findings.
[2025-05-16 15:36] VITALS: PULSE 72; RESP 20; O2SAT 96
[2025-05-16] MEDS: methylPREDNISolone sod succ 125 mg/2 mL INJ IVP (15:38)
[2025-05-16 15:40] LABS: Hematocrit 46.5 % (37-53); Hemoglobin 16.20 g/dL (11.27-16.99); Mean Corpuscular HGB Conc 34.8 g/dL (30-55); Mean Corpuscular Hemoglobin 31.0 pg (27-33); Mean Corpuscular Volume 89.1 fl (82-101); Nucleated Red Blood Cells % 0 %; Platelet Count 260 10^3/cmm (157-399); Red Blood Count 5.22 10^6/uL (3.85-5.65); White Blood Count 6.84 10^3/uL (3.29-11.43)
--- NOTE | 2025-05-16 15:40 | ED_ITS ---
HPI - Chest Pain 2 General: Chief Complaint: Chest Pain Stated Complaint: chest pain Source: patient Mode of arrival: EMS Limitations: no limitations History of Present Illness: Patient is a 34-year-old male who presents emergency department by ambulance with complaints of chest pain has been going on for a week. He also is noting general upper respiratory symptoms including a productive cough and shortness of breath, denies history of asthma. States he has been having palpitations as well, and notes he feels anxious and does have a history of schizophrenia as well as anxiety. He is a chronic everyday smoker, also states he smoked weed and drink alcohol prior to coming in today. Vitals are stable he is breathing comfortably on room air appears in no acute respiratory distress but is mildly anxious at this time. No other pertinent past medical history to report. MD complaint: chest pain and other (Shortness of breath, cough, palpitations) Onset (ago): week(s) Timing of current episode: constant Associated symptoms: Reports dyspnea and palpitations; Deny abdominal pain, fever(s), nausea or vomiting Related Data Previous Rx's ?Medication ?Instructions ?Recorded divalproex 500 mg tablet,extended 1,000 mg (2 x 500 mg ) PO BEDTIME 04/13/25 release 24 hr #60 tabs olanzapine 20 mg disintegrating 20 mg PO BEDTIME #30 t abs 04/13/25 tablet albuterol sulfate 90 mcg/actuation 1 inh inhalation Q6 H PRN shortness 05/16/25 aerosol inhaler of breath or wheezing #6.7 g ras azithromycin 500 mg tablet 500 mg PO DAILY 5 days #5 t abs 05/16/25 prednisone 20 mg tablet 60 mg (3 x 20 mg) PO ONCE 5 days 05/16/25 #15 tabs Allergies Allergy/AdvReac Type Severity Reaction Status Date / Time Penicillins Allergy ALGY-Anaphy Verified 04/13/25 13:35 laxis Review of Systems 2 General: Reports: 10 or more systems reviewed and unremarkable except in HPI and below Const: Denies: fever(s), chills or fatigue Eyes: Denies: change in vision ENMT: Denies: throat pain, ear or mastoid pain or nasal discharge Card: Reports: palpitations; Denies: chest pain, swelling of feet/ankles or lightheadedness Resp: Reports: dyspnea, productive cough and wheezing GI: Denies: abdominal pain, nausea, vomiting, diarrhea or constipation : Denies: flank pain, difficulty urinating, dysuria or urinary frequency Musc: Denies: neck pain, back pain or joint pain Skin/Breast: Denies: rash Neuro: Denies: headache(s), numbness in extremities or weakness in extremities PFSH ED 2 PFSH: Medical History Nicotine dependence due to vaping tobacco product Paranoid schizophrenia Psychiatric care Strain of muscle, fascia and tendon of lower back, initial encounter Surgical History No significant past surgical history Family History Father No problems noted. Mother No problems noted. Social History Smoking and tobacco/nicotine status: current every day tobacco/nicotine user Quit status (tobacco/nicotine): considering quitting Second hand smoke exposure: No Alcohol intake: current Alcohol intake frequency: few times a week Alcohol type: beer, wine and hard liquor Substance/Drug Use: current Substance/Drug use frequency: few times a week Adopted: No Caregiver/support person: No Physical Exam 2 Const: COMMON NORMALS: no acute distress, patient oriented x3 and no limitations GENERAL APPEARANCE: cooperative, comfortable, well developed and anxious ORIENTATION/CONSCIOUSNESS: Yes awake, Yes oriented to person, Yes oriented to place and Yes oriented to time Resp: COMMON NORMALS: normal respiratory effort, No retractions, No use of accessory muscles and clear to auscultation bilaterally EFFORT & INSPECTION: Yes able to speak in complete sentences and Yes Actively coughing productive AUSCULTATION: clear to auscultation bilaterally Cardio: COMMON NORMALS: regular rate, regular rhythm, No clicks present (Cardio), No murmurs present (Cardio) and No rub (Cardio) RATE: regular rate RHYTHM: regular rhythm GI: COMMON NORMALS: Normal to inspection, nondistended, normoactive bowel sounds present, Soft to palpation and non-tender AUSCULTATION: Yes normoactive bowel sounds PALPATION: Yes Soft to palpation RECTAL EXAM: Yes deferred Extremity: COMMON NORMALS: normal to inspection, full ROM and capillary refill normal Neuro: COMMON NORMALS: patient oriented x3, moves all extremities, no focal motor deficits and no sensory deficits noted SENSORIUM/ORIENTATION: Yes oriented to person, Yes oriented to place and Yes oriented to time Skin: COMMON NORMALS: no rashes or lesions noted GENERAL SKIN EXAM: no rashes or lesions noted Course 2 Vital Signs: Vital signs: Vital Signs Temperature 98.3 F 05/16/25 15:10 Pulse Rate 95 05/16/25 16:46 Respiratory Rate 17 05/16/25 15:45 Blood Pressure 141/86 05/16/25 16:46 Pulse Oximetry 97 05/16/25 16:46 Oxygen Delivery Me thod Room Air 05/16/25 15:36 MDM - Chest Pain Medical Decision Making Patient presented by ambulance for complaints of shortness of breath productive cough wheezing chest pain palpitations going on for greater than a week. States to me he recently moved to the area, does not have a primary care provider. He is never a smoker, also admits to smoking weed drinking alcohol prior to coming in. There is no adventitious heart or lung sounds at time of examination overall nontoxic-appearing. Has been demonstrating normal SpO2 saturations on room air. He had no pertinent past medical history otherwise other than psychiatric history. Chest x-ray showing no focal consolidation. His CBC and CMP are both unremarkable, viral swab negative. With reports of productive cough greater than a week we will treat empirically for acute bronchitis and reactive airways disease, received DuoNeb therapy here and he had noted that it did make his breathing feel better. He will be discharged home with a Z-Richi, prednisone Dosepak, and albuterol Hailer. Lab Data 05/16/25 15:32 05/16/25 15:32 Radiology Impressions Chest X-Ray 05/16/25 15:16 IMPRESSION: No acute findings. Laboratory Results WBC 6.84 10^3/uL (3.29-11.43) 05/16/25 15:32 RBC 5.22 10^6/uL (3.85-5.65) 05/16/25 15:32 Hgb 16.20 g/dL (11.27-16.99) 05/16/25 15:32 Hct 46.5 % (37-53) 05/16/25 15:32 MCV 89.1 fl (82-101) 05/16/25 15:32 MCH 31.0 pg (27-33) 05/16/25 15: MCHC 34.8 g/dL (30-55) 05/16/25 15:32 RDW 12.8 % (12.1-15.1) 05/16/25 15:32 Plt Count 260 10^3/cmm (157-399) 05/16/25 15:32 MPV 10.6 fL (7.4-10.4) H 05/16/25 15:32 Neut % (Auto) 60.9 % 05/16/25 15:32 Lymph % (Auto) 29.2 % 05/16/25 15:32 [place] % (Auto) 8.9 % 05/16/25 15:32 Eos % (Auto) 0.3 % 05/16/25 15: Baso % (Auto) 0.4 % 05/16/25 15: Neut # (Auto) 4.16 10^3/uL (1.8-7.7) 05/16/25 15:32 Lymph # (Auto) 2.0 10^3/uL (0.8-4.8) 05/16/25 15:32 [place] # (Auto) 0.6 10^3/uL (0.2-0.9) 05/16/25 15:32 Eos # (Auto) 0.0 10^3/uL (0.0-0.8) 05/16/25 15:32 Baso # (Auto) 0.0 10^3/uL (0.0-0.1) 05/16/25 15:32 Nucleated RBC % (auto) 0 % 05/16/25 15: Nucleated RBCs # 0.0 /100WBC 05/16/25 15:32 Sodium 136 mmol/L (136-145) 05/16/25 15:32 Potassium 4.1 mmol/L (3.5-5.1) 05/16/25 15:32 Chloride 98 mmol/L (98-107) 05/16/25 15:32 Carbon Dioxide 27 mmol/L (22-29) 05/16/25 15:32 Anion Gap 15.1 (5-19) 05/16/25 15:32 BUN 9 mg/dL (6-20) 05/16/25 15:32 Creatinine 0.6 mg/dL (0.7-1.2) L 05/16/25 15:32 GFR Calculation 154.2 mL/min (90-130) H 05/16/25 15:32 Glucose 104 mg/dL (65-115) 05/16/25 15:32 Calculated Osmolality 281 mOsm/kg (285-295) L 05/16/25 15: Calcium 9.0 mg/dL (8.5-10.5) 05/16/25 15:32 Total Bilirubin 0.3 mg/dL (0.15-1.2) 05/16/25 15:32 AST 20 U/L (0-40) 05/16/25 15:32 ALT 19 U/L (0-41) 05/16/25 15: Alkaline Phosphatase 68 U/L (40-130) 05/16/25 15:32 Total Protein 8.1 g/dL (6.6-8.7) 05/16/25 15:32 Albumin 4.8 g/dL (3.5-5.2) 05/16/25 15:32 Globulin 3.3 g/dL (1.3-4.6) 05/16/25 15:32 Urine Color Yellow (Yellow) 05/16/25 16:30 Urine Appearance Clear (CLEAR) 05/16/25 16:30 Urine pH 5.5 (5-7) 05/16/25 16:30 Ur Specific [place] 1.006 (1.005-1.030) 05/16/25 16:30 Urine Protein Negative (Negative) 05/16/25 16:30 Urine Glucose (UA) Negative (Normal) 05/16/25 16:30 Urine Ketones Negative (Negative) 05/16/25 16:30 Urine Blood Negative (Negative) 05/16/25 16:30 Urine Nitrate Negative (Negative) 05/16/25 16:30 Urine Bilirubin Negative (Negative) 05/16/25 16:30 Urine Urobilinogen 0.2 mg/dL (Negative) 05/16/25 16:30 Ur Leukocyte Esterase Negative (Negative) 05/16/25 16:30 Urine RBC 0-2 /hpf (0-2) 05/16/25 16:30 Urine WBC 0-5 /hpf (0-5) 05/16/25 16:30 Ur Squamous Epith Cells 0-5 /hpf (0-5) 05/16/25 16:30 Amorphous Sediment Not Reportable 05/16/25 16:30 Urine Bacteria None seen /hpf (NONE) 05/16/25 16:30 Hyaline Casts 0-4 /lpf H 05/16/25 16:30 Influenza A (PCR) Negative (Negative) 05/16/25 15:39 Influenza Type B (PCR) Negative (Negative) 05/16/25 15:39 RSV (PCR) Negative (Negative) 05/16/25 15:39 SARS-CoV-2 (PCR) Negative (Negative) 05/16/25 15:39 All radiology interpretation(s) finalized by discharge Discharge Plan Discharge Patient Disposition: Home Clinical Impression: Acute bronchitis, Reactive airway disease Condition: Stable Prescriptions: New prednisone 20 mg tablet 60 mg PO ONCE 5 Days Qty: 15 0RF albuterol sulfate 90 mcg/actuation HFA aerosol inhaler 1 inh inhalation Q6H PRN (Reason: shortness of breath or wheezing) Qty: 6.7 0RF azithromycin 500 mg tablet 500 mg PO DAILY 5 Days Qty: 5 0RF No Action divalproex 500 mg tablet extended release 24 hr 1,000 mg PO BEDTIME Qty: 60 6RF Rx Instructions: Take two tablets at bedtime olanzapine 20 mg tablet,disintegrating 20 mg PO BEDTIME Qty: 30 6RF Rx Instructions: Take one tablet at bedtime Discharge Orders: Discharge ED (Routine); Ordered 05/16/25 Ordered By: Vikas Connelly Referrals: Casimiro Barriga MD [Primary Care Provider, Family Practice] Patient Instructions: Patient Portal & Torie Instructions Activity Restrictions/Additional Instructions: Discharge Instructions Your Diagnosis You have been diagnosed with acute bronchitis and reactive airways disease. Acute bronchitis is an infection of the airways in your lungs that causes coughing and sometimes wheezing or shortness of breath. What to Expect Your cough may last for 2 to 3 weeks, and sometimes longer. This is normal for acute bronchitis, even with treatment. The cough should gradually improve over time. Your Medications You have been prescribed three medications: 1. Azithromycin (Z-Richi) - Take as directed on the package (usually 2 tablets on day 1, then 1 tablet daily for 4 more days) - Take with or without food - Finish all the medication even if you feel better 2. Prednisone (steroid) - Take exactly as prescribed - Take with food to avoid stomach upset - Do not stop this medication suddenly 3. Albuterol inhaler - Use 1-2 puffs every 4-6 hours as needed for wheezing or shortness of breath - Shake well before each use - If you need to use it more than every 4 hours, call your doctor Possible Side Effects - Azithromycin may cause nausea, diarrhea, or stomach upset - Prednisone may cause increased appetite, trouble sleeping, or mood changes - Albuterol may cause shakiness or fast heartbeat When to Seek Medical Care Return to the emergency department or call your doctor if you develop: - Fever over 100.4?F (38?C) that lasts more than a few days - Worsening shortness of breath or chest pain - Coughing up blood - Symptoms that get worse instead of better - Confusion or extreme drowsiness Self-Care at Home - Get plenty of rest - Drink lots of fluids (water, warm tea, soup) - Use a humidifier if you have one - Avoid smoking and secondhand smoke Follow-Up If your cough persists beyond 3 weeks or worsens, contact your doctor for reassessment. Print Language: [place] Coding Level of Care Code ED [employer] for Chg Fwd Heart Score HEART Score Components History: Slightly Suspicous EKG: Normal Age: Less than 45 yrs Risk Factors: No Risk Factors Known Troponin: Baseline Trop <16 ng/L (not ordered) HEART Score RESULT HEART Score: 0
[2025-05-16 15:45] VITALS: BP 154/96; PULSE 108; RESP 17; O2SAT 94
[2025-05-16 15:52] LABS: Alanine Aminotransferase 19 U/L (0-41); Albumin Level 4.8 g/dL (3.5-5.2); Alkaline Phosphatase 68 U/L (40-130); Anion Gap 15.1 (5-19); Aspartate Amino Transferase 20 U/L (0-40); Blood Urea Nitrogen 9 mg/dL (6-20); Calcium 9.0 mg/dL (8.5-10.5); Carbon Dioxide 27 mmol/L (22-29); Chloride 98 mmol/L (98-107); Globulin 3.3 g/dL (1.3-4.6); Glucose 104 mg/dL (65-115); Osmolality Calculated 281 mOsm/kg (285-295); Potassium 4.1 mmol/L (3.5-5.1); Sodium 136 mmol/L (136-145); Total Protein 8.1 g/dL (6.6-8.7)
[2025-05-16 16:18] LABS: Respiratory Syncytial Virus Ce NEGATIVE (Negative); SARS-CoV-2 PCR NEGATIVE (Negative)
[2025-05-16 16:37] LABS: Glucose Urine UA Negative (Normal); Nitrate Urine Negative (Negative); Specific Gravity, Urine 1.006 (1.005-1.030)
[2025-05-16 16:42] LABS: Add Urine Microscopic? YES
[2025-05-16 16:46] VITALS: BP 141/86; PULSE 95; O2SAT 97
== END 2025-05-16 16:56 | disposition home or self-care (01) ==
PROVIDERS: Emergency Provider Physician Assistant; PCP Family Medicine Adult Medicine
DX: J20.9 Acute bronchitis, unspecified (principal); J45.909 Unspecified asthma, uncomplicated
CPT/HCPCS: 36415; 71045; 80053; 81001; 85025; 87637; 93005; 94640; 96374; 99284; J2919; J7030; J9999